=== PATIENT | male | born 1990 | race Asian ===

== ENCOUNTER 2020-10-17 13:28 | Emergency (ER) | payer OTHER ==
[~2020-10-17] VITALS: Ht 167.6 cm; Wt 95.3 kg
[2020-10-17 14:42] LABS: PLATELET COUNT 360 K/uL (142-355)
[2020-10-17 15:06] LABS: POTASSIUM 3.6 mmol/L (3.6-5.2)
[2020-10-17 15:57] VITALS: BP 127/80; TEMP 98
== END 2020-10-17 15:57 | disposition home or self-care (01) ==
LOC: ED 13:28
PROVIDERS: Emergency Medicine Emergency Medical Services
DX: U07.1 COVID-19 (principal)
CPT/HCPCS: 36415; 80053; 85027; 96360; 96375; 99284; J1885; J2405

== ENCOUNTER 2020-10-23 21:53 | Emergency (ER) | payer OTHER ==
[~2020-10-23] VITALS: Ht 167.6 cm; Wt 95.3 kg
[2020-10-23 22:27] LABS: PLATELET COUNT 316 K/uL (142-355)
[2020-10-23 22:31] LABS: POTASSIUM 4.2 mmol/L (3.6-5.2)
[2020-10-23 23:10] VITALS: BP 101/57; TEMP 99
== END 2020-10-23 23:10 | disposition home or self-care (01) ==
LOC: ED 21:53
PROVIDERS: Hospitalist
DX: J06.9 Acute upper respiratory infection, unspecified (principal); U07.1 COVID-19; R11.2 Nausea with vomiting, unspecified; E86.0 Dehydration
CPT/HCPCS: 36415; 80048; 85027; 96360; 96375; 99284; J2405